=== PATIENT | male | born 2000 | race Two or more races ===

== ENCOUNTER 2019-12-09 20:35 | Emergency (ER) | payer MEDICAID ==
[~2019-12-09] VITALS: Ht 172.7 cm; Wt 77.1 kg
[2019-12-09 21:13] VITALS: BP 137/70
[2019-12-09] MEDS ORDERED: IBUPROFEN 400 MG TAB PO ONE (21:15)
[2019-12-09] MEDS ORDERED: HYDROcodone-ACET 5/325MG TAB PO ONE (21:15)
== END 2019-12-09 22:13 | disposition home or self-care (01) ==
LOC: EDBD 20:35 → ER 20:37
DX: S89.91XA Unspecified injury of right lower leg, initial encounter (principal); X58.XXXA Exposure to other specified factors, initial encounter; Y93.02 Activity, running; Y92.89 Other specified places as the place of occurrence of the external cause; Y99.8 Other external cause status
CPT/HCPCS: 29505; 73562